=== PATIENT | male | born 1935 | race Caucasian/White ===

== ENCOUNTER → 2016-05-01 | Outpatient (CLI) | payer MEDICARE, BC | END | disposition home or self-care (01) | LOC: RAD.S 13:11 | DX: M54.2 Cervicalgia (principal); R22.1 Localized swelling, mass and lump, neck; C18.2 Malignant neoplasm of ascending colon; I10 Essential (primary) hypertension ==

== ENCOUNTER 2016-06-24 10:49 | Emergency (ER) | payer MEDICARE, BC ==
--- NOTE | 2016-06-25 10:41 | ER ---
ADMIT: 06/24/2016 RM/LOC: ER [facility] MR#: [id number] 26[address] [facility] [address] [place] [id number] BREANN CABRERA [address] [place] [address] Emergency Room Report SEX: M AGE: 80 : 1935 DATE: 06/24/2016 CHIEF COMPLAINT: Dry mouth. HISTORY OF PRESENT ILLNESS: This is an 80-year-old white male, who presents to the ER feeling poorly for the past 60 days he states. Complaining of a dry mouth, urinary frequency, and polydipsia, concerns for underlying diabetes. He states he has some tingling bilaterally in his lower feet. Also, complains of a cough, and some sores on his legs. He is typically alert and oriented and walks without assistance. He lives independently at home. He did recently see Dr. Li for dry throat and was started on a course of fluconazole for thrush it sounds like. PAST MEDICAL HISTORY: Colon cancer, status post colectomy, chemoradiation. MEDICATIONS: He currently takes: 1. Lasix. 2. Prilosec. 3. Prednisone. 4. Fluconazole. 5. Colcrys. ALLERGIES: NO KNOWN DRUG ALLERGIES. COURSE IN THE EMERGENCY ROOM: He was seen and examined. He is afebrile and nontoxic. He is in no acute distress. He does have some chronic stasis changes bilaterally on lower legs as well as some patches on the bilateral tibias concerning for possible acanthosis nigricans. Motor and sensation is intact bilaterally. He does have decreased sensation to light touch in feet. Heart does have a 4/6 systolic murmur and radiates to the right. No pedal edema. Did get lab work on him today, shows white count 8.0, hemoglobin 13.5, hematocrit 39.0, and platelets 136. Urine shows glucose greater than a 1000. His CMP; sodium 131, potassium 4.1, BUN 21, glucose 596. His A1c was 11. Also, did get ADMIT: 06/24/2016 RM/LOC: [facility] MR#: [id number] [address] [facility] [address] [place] [id number] [address] [place] [address] Emergency Room Report SEX: M AGE: 80 : 1935 a venous pH on him, it was 7.43. I did start him on a liter of fluids, gave him 5 units of normal insulin IV. Prior to discharge, I also spoke with Bob MOISE with the [facility] who will ensure followup tomorrow with their group as this is new onset diabetes. IMPRESSION: New-onset diabetes mellitus. DISPOSITION: The patient will be started on metformin 500 mg p.o. b.i.d. He will follow up with the [facility] tomorrow. He is to follow a diabetic diet. Activity as tolerated. Continue all home medications. He will return with any worsening signs or symptoms. Questions were sought and answered to the best of my ability and to the patient's satisfaction. Discharged in stable condition. SUMA Everett / Wilton Baeza MD / modl JOB #: [id number] CC: Wilton Baeza MD, Attending Physician
== END 2016-06-24 15:15 | disposition home or self-care (01) ==
LOC: ER 10:49
DX: E11.40 Type 2 diabetes mellitus with diabetic neuropathy, unspecified (principal); Z85.038 Personal history of other malignant neoplasm of large intestine; Z90.49 Acquired absence of other specified parts of digestive tract; Z79.899 Other long term (current) drug therapy; Z79.84 Long term (current) use of oral hypoglycemic drugs

== ENCOUNTER 2016-07-01 11:26 | Emergency (ER) | payer MEDICARE, BC ==
--- NOTE | 2016-07-14 08:14 | ER ---
ADMIT: 07/01/2016 RM/LOC: ER [facility] MR#: [id number] [address] [id number] BREANN CABRERA [address] [place] [address] Emergency Room Report SEX: M AGE: 80 : 1935 DATE: 07/01/2016 ADDENDUM: This patient comes to the ER because at home his blood sugars have been high. He states he has no energy, but denies any pain or weakness. He has an occasional cough, but says it is not really anything big and denies any shortness of breath. He was recently diagnosed with having diabetes last week and was given 10 days supply of metformin. He was supposed to follow up with his primary care physician who recently and has an appointment with a new primary doctor next week who is Dr. Cabrera on this Saturday. On physical exam, he is alert and talkative. He states his only complaint is that he is thirsty. His lungs are clear. Vital signs are normal. His hemoglobin was normal in the ER, but his glucose was 510. I did consult with Dr. Baeza concerning treatment of this patient. I spoke with Dr. Cabrera, whom he is going to follow up this week. For Dr. Cabrera, he is to follow up on Saturday. He was given regular insulin 10 units in the ER and I filled his prescription for metformin. He is to keep this appointment. We also did a referral for diabetes education as he is newly diagnosed. Please see my T- sheet. SUMA Allan / Wilton Baeza MD / modl JOB #: [id number] CC: Wilton Baeza MD, Attending Physician UNKNOWN, Family Physician Eduardo Cabrera MD
== END 2016-07-01 14:15 | disposition home or self-care (01) ==
LOC: ER 11:26
DX: E11.9 Type 2 diabetes mellitus without complications (principal); Z79.84 Long term (current) use of oral hypoglycemic drugs; Z79.899 Other long term (current) drug therapy; Z85.038 Personal history of other malignant neoplasm of large intestine

== ENCOUNTER 2016-07-30 17:06 | Emergency (ER) | payer MEDICARE, BC ==
--- NOTE | 2016-08-02 12:41 | ER ---
ADMIT: 07/30/2016 RM/LOC: ER [facility] MR#: [id number] [facility]#: [id number] [address] [address] BREANN CABRERA [address] [place] [id number] Emergency Room Report SEX: M AGE: 80 : 1935 DATE: 07/30/2016 SUBJECTIVE: The patient presents to the emergency room with dizziness and lightheadedness. He has a bruise in the left lower eyelid concerned of a possible trauma without him knowing it. He does not take any anticoagulants. He is on metformin, Prilosec, and a stool softener and Lasix. He has had a history of colon cancer, neuropathy, diabetes type 2, and hypertension. His daughter is at bedside. He seems to be very jovial and interactive. PHYSICAL EXAMINATION: VITAL SIGNS: Blood pressure 139/75, heart rate 69, respirations 12, temperature is 96.9, O2 saturation 98%. GENERAL: As mentioned, mildly anxious, but still very pleasant and interactive and alert, in no acute distress. HEENT: Left lower eyelid bruising. No trauma to the eye. No tenderness around the orbit. SKIN: Otherwise good color and turgor. NEURO: Oriented x4. LABORATORY DATA: I did do labs on him. The white count is normal. The chemistry; glucose 120, albumin 3.4, GFR is 88, TSH 3.5, PTT 22.9. CLINICAL IMPRESSION: Left eye bruising. No trauma. Meniere disease. Gave him some meclizine to help him with the symptoms. I did do a CT scan that came back negative. Released home. Advised to follow up with Dr. Cabrera as he has scheduled an appointment on . SUMA Barajas / Wilton Baeza MD / mateo JOB #: [id number] CC: Wilton Baeza MD, Attending Physician Eduardo Cabrera MD, Family Physician
== END 2016-07-30 21:25 | disposition home or self-care (01) ==
LOC: ER 17:06
DX: S00.12XA Contusion of left eyelid and periocular area, initial encounter (principal); H81.09 Meniere's disease, unspecified ear; E11.9 Type 2 diabetes mellitus without complications; I10 Essential (primary) hypertension; Z98.890 Other specified postprocedural states; Z85.038 Personal history of other malignant neoplasm of large intestine; Z79.84 Long term (current) use of oral hypoglycemic drugs; Z79.899 Other long term (current) drug therapy; X58.XXXA Exposure to other specified factors, initial encounter